=== PATIENT | male | born 1940 | race Caucasian/White ===

== ENCOUNTER → 2021-06-21 | Outpatient (CLI) | payer MEDICARE, OTHER ==
[2021-06-21 11:47] LABS: HEMATOCRIT 37 % (40-54); HEMOGLOBIN 12.4 g/dL (13.3-17.7); MEAN CORPUSCULAR HEMOGLOBIN 31 pg (25-34); MEAN CORPUSCULAR HGB CONC 34 g/dL (32-36); MEAN CORPUSCULAR VOLUME 91 fL (80-99); MEAN PLATELET VOLUME 8.7 fL (9.0-12.2); PLATELET COUNT 289 10^3/uL (130-400); WHITE BLOOD COUNT 8.9 10^3/uL (4.3-11.0)
[2021-06-21 12:01] LABS: BILIRUBIN,URINE NEGATIVE (NEGATIVE); CLARITY,URINE CLEAR; COLOR,URINE YELLOW; GLUCOSE, URINE (UA) NEGATIVE (NEGATIVE); KETONES,URINE NEGATIVE (NEGATIVE); LEUKOCYTE ESTERASE ,URINE NEGATIVE (NEGATIVE); NITRITE,URINE NEGATIVE (NEGATIVE); PROTEIN,URINE 2+ (NEGATIVE)
[2021-06-21 12:06] LABS: BACTERIA,URINE NEGATIVE /HPF; WBC,URINE 0-2 /HPF
[2021-06-21 12:30] LABS: CALCIUM 9.2 MG/DL (8.5-10.1); CREATININE SERUM 1.96 MG/DL (0.60-1.30); MAGNESIUM 1.9 MG/DL (1.6-2.4); POTASSIUM 4.5 MMOL/L (3.6-5.0)
[2021-06-21 14:58] LABS: PHOSPHORUS 3.6 MG/DL (2.3-4.7); URIC ACID 5.9 MG/DL (2.6-7.2)
== END ==
LOC: LAB FS 10:58
DX: I12.9 Hypertensive chronic kidney disease with stage 1 through stage 4 chronic kidney disease, or unspecified chronic kidney disease (principal); E11.21 Type 2 diabetes mellitus with diabetic nephropathy; N18.32 Chronic kidney disease, stage 3b; N28.1 Cyst of kidney, acquired; N14.0 Analgesic nephropathy; E55.9 Vitamin D deficiency, unspecified; C61 Malignant neoplasm of prostate; E79.0 Hyperuricemia without signs of inflammatory arthritis and tophaceous disease; N25.81 Secondary hyperparathyroidism of renal origin; E11.22 Type 2 diabetes mellitus with diabetic chronic kidney disease; Z68.31 Body mass index [BMI] 31.0-31.9, adult
CPT/HCPCS: 36415; 80069; 81000; 82306; 82570; 83735; 83970; 84155; 84156; 84165; 84166; 84550; 85027

== ENCOUNTER 2022-04-14 13:35 | Emergency (ER) | payer MEDICARE, OTHER ==
[~2022-04-14] VITALS: Ht 177.8 cm; Wt 86.2 kg
--- NOTE | 2022-04-14 13:39 | ED Neurological Problem ---
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 Patient's son is with him in the ER and is contributing to the patient's history. Patient states that he has been feeling sleepy during the day lately, because his is up at night complaining of back pain, which in turn keeps him up. Patient took a nap after breakfast today, and when he got out of bed he fell due to momentarily losing his balance as per patient. Pt is to remember how he fell. When patient's son and [id number] checked on him he was sitting on the floor with a few seconds of slurred speech which then normalized. Patient is alert and oriented x3 in the ER, with clear speech. Patient has been compliant with his medications. Denies chest pain, dizziness, lightheadedness, visual disturbances, shortness of breath, abdominal pain, nausea and vomiting, headache, sensory loss, neurological deficits. Patient uses a cane as baseline while ambulating. Patient's son reports that patient occasionally gets slurred speech, especially when he is excited or stressed. Allergies and Home Medications Allergies Coded Allergies: No Known Drug Allergies (Unverified , 04/14/22) Patient Home Medication List Home Medication List Reviewed: Yes Review of Systems Review of Systems Constitutional: no symptoms reported Eyes: No Symptoms Reported Ears, Nose, Mouth, Throat: no symptoms reported Respiratory: no symptoms reported Cardiovascular: no symptoms reported Gastrointestinal: no symptoms reported Genitourinary: no symptoms reported Musculoskeletal: no symptoms reported Skin: no symptoms reported Psychiatric/Neurological: Other Endocrine: No Symptoms Reported Hematologic/Lymphatic: No Symptoms Reported Physical Exam Vital Signs Vital Signs - First Documented 04/14/22 13:37 Temp 36.5 Pulse 86 Resp 16 B/P (MAP) 177/91 (119) O2 Delivery Room Air Capillary Refill : Height, Weight, BMI Height: '" Weight: lbs. oz. kg; BMI Method: General Appearance: WD/WN, no apparent distress HEENT: PERRL/EOMI Neck: non-tender, full range of motion, supple, normal inspection Respiratory: lungs clear, normal breath sounds Cardiovascular: regular rate, rhythm Gastrointestinal: normal bowel sounds, non tender, soft Back: normal inspection, no vertebral tenderness Extremities: normal range of motion, normal inspection, no pedal edema Neurologic/Psychiatric: poker supervisor II-XII nml as tested, no motor/sensory deficits, alert, normal mood/affect, oriented x 3 Crainal Nerves: normal hearing, normal speech, PERRL Motor/Sensory: no motor deficit, no sensory deficit, no pronator drift, negative Babinski's sign Stroke Onset of Symptoms Date of Onset of Symptoms: Apr 14, 2022 NIH Stroke Scale Assessment Select: Discharge Level of Consciousness: 0=Alert (0), Level of Consciousness-Questions: 0=Answers both month/age (0), LOC Commands: 0=Performs both tasks (0), Visual Yang: 0=No visual loss (0), Facial Movement (Facial Paresis): 0=Normal symmetrical mnt (0), Motor Function-Arms Right: 0=No drift (0), Motor Function-Arms Left: 0=No drift (0), Motor Function-Legs Right: 3=No effort/gravity (3), Motor Function-Legs Left: 0=No drift (0), Limb Ataxia: 0=Absent (0), Sensory: 0=Normal:no loss (0), Best Language: 0=No aphasia (0), Dysarthria: 0=Normal (0), Extinction & Shaneka ttention: 0=No abnormality (0), Total: 3 Stroke Thrombolytic Exclusion Age 18 or Over: Yes History of CVA: Yes Progress/Results/Core Measures Results/Orders Lab Results Laboratory Tests Test 04/14/22 13:41 04/14/22 15:07 Range/Units White Blood Count 8.1 4.3-11.0 10^3/uL Red Blood Count 4.35 4.30-5.52 10^6/uL Hemoglobin 13.2 L 13.3-17.7 g/dL Hematocrit 38 L 40-54 % Mean Corpuscular Volume 88 80-99 fL Mean Corpuscular Hemoglobin 30 25-34 pg Mean Corpuscular Hemoglobin Concent 35 32-36 g/dL Red Cell Distribution Width 12.9 10.0-14.5 % Platelet Count 207 130-400 10^3/uL Mean Platelet Volume 9.1 9.0-12.2 fL Immature Granulocyte % (Auto) 0 % Neutrophils (%) (Auto) 76 H 42-75 % Lymphocytes (%) (Auto) 7 L 12-44 % Monocytes (%) (Auto) 16 H 0-12 % Eosinophils (%) (Auto) 1 0-10 % Basophils (%) (Auto) 0 0-10 % Neutrophils # (Auto) 6.1 1.8-7.8 10^3/uL Lymphocytes # (Auto) 0.6 L 1.0-4.0 10^3/uL Monocytes # (Auto) 1.3 H 0.0-1.0 10^3/uL Eosinophils # (Auto) 0.1 0.0-0.3 10^3/uL Basophils # (Auto) 0.0 0.0-0.1 10^3/uL Immature Granulocyte # (Auto) 0.0 0.0-0.1 10^3/uL Prothrombin Time 13.3 12.2-14.7 SEC INR Comment 1.0 0.8-1.4 Activated Partial Thromboplast Time 27 24-35 SEC Sodium Level 136 135-145 MMOL/L Potassium Level 4.1 3.6-5.0 MMOL/L Chloride Level 103 98-107 MMOL/L Carbon Dioxide Level 21 21-32 MMOL/L Anion Gap 12 5-14 MMOL/L Blood Urea Nitrogen 35 H 7-18 MG/DL Creatinine 2.08 H 0.60-1.30 MG/DL Estimat Glomerular Filtration Rate 31 BUN/Creatinine Ratio 17 Glucose Level 135 H 70-105 MG/DL Calcium Level 8.8 8.5-10.1 MG/DL Corrected Calcium 9.0 8.5-10.1 MG/DL Total Bilirubin 0.4 0.1-1.0 MG/DL Aspartate Amino Transf (AST/SGOT) 22 5-34 U/L Alanine Aminotransferase (ALT/SGPT) 20 0-55 U/L Alkaline Phosphatase 51 40-136 U/L Bedside Troponin I < 0.05 H < or = 0.05 ng/mL Total Protein 6.3 L 6.4-8.2 GM/DL Albumin 3.7 3.2-4.5 GM/DL Urine Color YELLOW Urine Clarity SL CLOUDY Urine pH 6.0 5-9 Urine Specific [place] 1.020 1.016-1.022 Urine Protein 2+ H NEGATIVE Urine Glucose (UA) NEGATIVE NEGATIVE Urine Ketones NEGATIVE NEGATIVE Urine Nitrite POSITIVE H NEGATIVE Urine Bilirubin NEGATIVE NEGATIVE Urine Urobilinogen 0.2 < = 1.0 MG/DL Urine Leukocyte Esterase TRACE H NEGATIVE Urine RBC (Auto) NEGATIVE NEGATIVE Urine RBC NONE /HPF Urine WBC 25-50 H /HPF Urine Squamous Epithelial Cells RARE /HPF Urine Crystals NONE /LPF Urine Bacteria LARGE H /HPF Urine Casts NONE /LPF Urine Mucus NEGATIVE /LPF Urine Culture Indicated YES My Orders Orders - BRADLY SARABIA MD Ct Head Wo-R/O Stroke (04/14/22 13:39) Ekg Tracing (04/14/22 14:07) Cbc With Automated Diff (04/14/22 14:07) Protime With Inr (04/14/22 14:07) Partial Thromboplastin Time (04/14/22 14:07) Comprehensive Metabolic Panel (04/14/22 14:07) Chest 1 View Ap/Pa Only (04/14/22 14:07) Nothing By Mouth (04/14/22 Lunch) Ed Iv/Invasive Line Start (04/14/22 14:07) Vital Signs Stroke Patient Q15M (04/14/22 14:07) Monitor-Rhythm Ecg Trace Only (04/14/22 14:07) Dysphagia Screening Tool [id number] (04/14/22 14:07) Ua Culture If Indicated (04/14/22 14:36) Urine Culture (04/14/22 15:07) Vital Signs/I&O 04/14/22 13:37 Temp 36.5 Pulse 86 Resp 16 B/P (MAP) 177/91 (119) O2 Delivery Room Air Progress Progress Note : Progress Note 1. TIA / STROKE RULE OUT: ACUTE CYSTITIS: - CT HEAD: no acute findings - CXR: unremarkable - Labs: creatinine is elevated - Troponin/ EKG: non-ischemic - UA: Positive for nitrites, leukocyte esterase, bacteria, and WBC -Ceftriaxone 1 g IV stat in ER -Prescription given for cefpodoxime 100 mg twice daily for 7 days -Advised adequate hydration with at least 8 glasses of water a day -Follow-up with PCP in the next 5 to 7 days -Patient's blood pressure has improved throughout the stay and last BP recorded was 159/68. Patient's son states that every time his father gets worked up, his blood pressure goes up. -Please on patient's son's report, and discussion of patient's baseline and probable early development of dementia, patient's symptoms are more likely for an UTI as the source. Unlikely to be a TIA based on H&P. -The patient was seen in the ED, and treated appropriately to presentation at a specific point in time. Patient is informed that there is a possibility that disease and illness can evolve and change in acuity rapidly or slowly after patient is discharged from the ER. Precautionary advice given to the patient for immediate return to ER if symptoms worsen or do not resolve, and to seek emergency care sooner rather than later. Pt also advised on the importance of PCP follow up and compliance with management and follow up plan with PCP and/or specialist, as this is part of the management plan. Pt verbally expressed understanding. Diagnostic Imaging Diagonstic Imaging: Xray, CT Plain Films/CT/US/NM/MRI: chest, head Comments [facility], [place] NAME: YONI PAZ Leigh Ann [facility] REC#: [id number] PT STATUS: REG ER : 1940 PHYSICIAN: BRADLY SARABIA MD ADMIT DATE: 04/14/22/ER FS Draft Date of Exam:04/14/22 CHEST 1 VIEW AP/PA ONLY INDICATION: TIA. FINDINGS: The heart size, mediastinal configuration, and pulmonary vascularity are within normal limits. There is no pleural effusion, pneumothorax, or pneumonia. The osseous structures are unremarkable. IMPRESSION: No acute cardiopulmonary abnormality. Dictated on workstation # [id number] Dict: 04/14/22 1430 Trans: 04/14/22 1431 [id number] Interpreted by: LENNY JESSICA MD Electronically signed by: NAME: YONI PAZ Leigh Ann [facility] REC#: [id number] PT STATUS: REG ER : 1940 PHYSICIAN: BRADLY SARABIA MD ADMIT DATE: 04/14/22/ER FS Draft Date of Exam:04/14/22 CT HEAD WO-R/O STROKE PROCEDURE: CT head wo r/o stroke. TECHNIQUE: Multiple contiguous axial images were obtained through the brain without the use of intravenous contrast. Auto Exposure Controls were utilized during the CT exam to meet ALARA standards for radiation dose reduction. INDICATION: Syncope and slurred speech. No prior studies are available for comparison. Ventricles and sulci are prominent consistent with patient's age. There is moderate periventricular low attenuation consistent with chronic microvascular ischemia. There is no sulcal effacement or midline shift. No acute intra-axial or extra-axial hemorrhage is detected. Cisterns are patent. Visualized paranasal sinuses are clear. IMPRESSION: Chronic and senescent changes. No acute intracranial process is detected. Dictated on workstation # [id number] Dict: 04/14/22 1404 Trans: 04/14/22 1406 [facility] [id number] Interpreted by: NNEKA PENA MD Electronically signed by: Departure Impression Primary Impression: Acute cystitis without hematuria Additional Impressions: Near syncope Fall Qualified Codes: W19.XXXA - Unspecified fall, initial encounter Disposition: HOME, SELF-CARE Condition: Stable Departure-Patient Inst. Referrals: MARCIE WEISS MD (PCP) Primary Care Physician Patient Instructions: Urinary Tract Infection, Adult ED, Preventing Falls in Older Adults, Acute Cystitis (DC), How to Use a Cane Add. Discharge Instructions: -Prescription given for cefpodoxime 100 mg twice daily for 7 days -Advised adequate hydration with at least 8 glasses of water a day -Follow-up with PCP in the next 5 to 7 days -Return to ER if symptoms worsen or do not improve Scripts Cefpodoxime Proxetil (Cefpodoxime Proxetil) 100 Mg Tablet 100 MG PO Q12H for 7 Days, #14 TAB Prov: BRADLY SARABIA MD 04/14/22 BRADLY SARABIA MD Apr 14, 2022 13:39
--- NOTE | 2022-04-14 14:06 | Diagnostic Imaging Report ---
PROCEDURE: CT head wo r/o stroke. TECHNIQUE: Multiple contiguous axial images were obtained through the brain without the use of intravenous contrast. Auto Exposure Controls were utilized during the CT exam to meet ALARA standards for radiation dose reduction. INDICATION: Syncope and slurred speech. No prior studies are available for comparison. Ventricles and sulci are prominent consistent with patient's age. There is moderate periventricular low attenuation consistent with chronic microvascular ischemia. There is no sulcal effacement or midline shift. No acute intra-axial or extra-axial hemorrhage is detected. Cisterns are patent. Visualized paranasal sinuses are clear. IMPRESSION: Chronic and senescent changes. No acute intracranial process is detected. Dictated by: Dictated on workstation # [id number]
[2022-04-14 14:20] LABS: BASOPHILS % (AUTO) 0 % (0-10); EOSINOPHILS # (AUTO) 0.1 10^3/uL (0.0-0.3); EOSINOPHILS % (AUTO) 1 % (0-10); HEMATOCRIT 38 % (40-54); HEMOGLOBIN 13.2 g/dL (13.3-17.7); LYMPHOCYTES # (AUTO) 0.6 10^3/uL (1.0-4.0); LYMPHOCYTES % (AUTO) 7 % (12-44); MEAN CORPUSCULAR HEMOGLOBIN 30 pg (25-34); MEAN CORPUSCULAR HGB CONC 35 g/dL (32-36); MEAN CORPUSCULAR VOLUME 88 fL (80-99); MEAN PLATELET VOLUME 9.1 fL (9.0-12.2); MONOCYTES # (AUTO) 1.3 10^3/uL (0.0-1.0); MONOCYTES % (AUTO) 16 % (0-12); NEUTROPHILS # (AUTO) 6.1 10^3/uL (1.8-7.8); NEUTROPHILS % (AUTO) 76 % (42-75); PLATELET COUNT 207 10^3/uL (130-400); WHITE BLOOD COUNT 8.1 10^3/uL (4.3-11.0)
--- NOTE | 2022-04-14 14:32 | Diagnostic Imaging Report ---
INDICATION: TIA. FINDINGS: The heart size, mediastinal configuration, and pulmonary vascularity are within normal limits. There is no pleural effusion, pneumothorax, or pneumonia. The osseous structures are unremarkable. IMPRESSION: No acute cardiopulmonary abnormality. Dictated by: Dictated on workstation # [id number]
[2022-04-14 14:41] LABS: CREATININE SERUM 2.08 MG/DL (0.60-1.30); POTASSIUM 4.1 MMOL/L (3.6-5.0)
[2022-04-14 14:42] LABS: ALBUMIN 3.7 GM/DL (3.2-4.5); BILIRUBIN,TOTAL 0.4 MG/DL (0.1-1.0); CALCIUM 8.8 MG/DL (8.5-10.1); TOTAL PROTEIN 6.3 GM/DL (6.4-8.2)
[2022-04-14 14:59] LABS: PROTHROMBIN TIME PATIENT 13.3 SEC (12.2-14.7)
[2022-04-14 15:07] LABS: BILIRUBIN,URINE NEGATIVE (NEGATIVE); CLARITY,URINE SL CLOUDY; COLOR,URINE YELLOW; GLUCOSE, URINE (UA) NEGATIVE (NEGATIVE); KETONES,URINE NEGATIVE (NEGATIVE); LEUKOCYTE ESTERASE ,URINE TRACE (NEGATIVE); NITRITE,URINE POSITIVE (NEGATIVE); PROTEIN,URINE 2+ (NEGATIVE)
[2022-04-14 15:16] LABS: BACTERIA,URINE LARGE /HPF; WBC,URINE 25-50 /HPF
[2022-04-14 15:17] LABS: SQUAMOUS EPITHELIAL CELL,UR RARE /HPF
[2022-04-14] MEDS ORDERED: cefTRIAXone 1 GM PRE-MIX 50 ML IV STA (15:23)
[2022-04-14] MEDS ORDERED: cefTRIAXone 1 GM PRE-MIX 50 ML IV ONE (15:26)
[2022-04-14] MEDS ORDERED: CEFP100T2 PO (15:39)
[2022-04-14 15:50] VITALS: BP 137/84
== END 2022-04-14 15:50 | disposition home or self-care (01) ==
LOC: EDUNIT# 13:35 → ER FS 13:36
DX: N30.00 Acute cystitis without hematuria (principal); R55 Syncope and collapse; I10 Essential (primary) hypertension; Z86.73 Personal history of transient ischemic attack (TIA), and cerebral infarction without residual deficits; W06.XXXA Fall from bed, initial encounter
CPT/HCPCS: 36415; 70450; 71045; 80053; 81000; 84484; 85025; 85610; 85730; 87077; 87088; 87186; 93005; 93041; 96365